=== PATIENT | female | born 1970 | race Caucasian/White ===

== ENCOUNTER 2020-12-09 09:56 | Emergency (ER) | payer SELFPAY | END 2020-12-09 13:40 | disposition home or self-care (01) | LOC: CSHERS 09:56 | DX: R19.7 Diarrhea, unspecified (principal); R10.32 Left lower quadrant pain; E11.9 Type 2 diabetes mellitus without complications; Z87.891 Personal history of nicotine dependence | CPT/HCPCS: 99283 ==

== ENCOUNTER 2021-08-06 14:17 | Emergency (ER) | payer SELFPAY ==
[2021-08-06] MEDS ORDERED: predniSONE 20 MG TAB ONE (14:51)
== END 2021-08-06 15:26 | disposition home or self-care (01) ==
LOC: CSHERS 14:17
DX: J45.909 Unspecified asthma, uncomplicated (principal); J06.9 Acute upper respiratory infection, unspecified; Z87.891 Personal history of nicotine dependence; E11.9 Type 2 diabetes mellitus without complications
CPT/HCPCS: 94640; J7512; J7620

== ENCOUNTER 2021-11-02 09:56 | Emergency (ER) | payer SELFPAY ==
[2021-11-02 10:42] LABS: Bilirubin Neg (Negative); Blood, Urine 50 (Negative); Clarity Clear (Clear); Glucose, Urine (Dipstick) >=1000 mg/dL (Negative); Ketone, Urine Negative (Negative); Leukocyte 500 (Negative); Nitrite Negative (Negative); Protein, Urine (Dipstick) 15 mg/dl (Neg-Trace); Specific Gravity, Urine 1.025 (1.002-1.036); Urobilinogen Normal mg/dL (Less than 2)
[2021-11-02 10:50] LABS: Bacteria/HPF 1+ HPF (None Seen); Mucous/LPF 2+ LPF (<2+)
== END 2021-11-02 11:45 | disposition home or self-care (01) ==
LOC: CSHERS 09:56
DX: N30.00 Acute cystitis without hematuria (principal); E11.9 Type 2 diabetes mellitus without complications; Z87.891 Personal history of nicotine dependence
CPT/HCPCS: 36416; 81003; 81015; 99284

== ENCOUNTER 2022-09-16 12:16 | Emergency (ER) | payer SELFPAY | END 2022-09-16 12:57 | disposition home or self-care (01) | LOC: CSHERS 12:16 | DX: K52.9 Noninfective gastroenteritis and colitis, unspecified (principal); E11.9 Type 2 diabetes mellitus without complications; Z87.891 Personal history of nicotine dependence | CPT/HCPCS: 99283 ==

== ENCOUNTER 2022-11-01 13:19 | Emergency (ER) | payer SELFPAY ==
[2022-11-01 17:05] LABS: SARS-CoV-2 NAA Rapid Test Not Detected (NotDetected)
== END 2022-11-01 17:25 | disposition home or self-care (01) ==
LOC: CSHERS 13:19
DX: J06.9 Acute upper respiratory infection, unspecified (principal); E11.9 Type 2 diabetes mellitus without complications; Z87.891 Personal history of nicotine dependence; Z20.822 Contact with and (suspected) exposure to COVID-19
CPT/HCPCS: 87081; 87430; 99283

== ENCOUNTER 2023-04-26 13:17 | Emergency (ER) | payer BC, SELFPAY ==
[2023-04-26] MEDS ORDERED: Ibuprofen 200 MG TAB ONE (19:31)
[2023-04-26 20:02] LABS: SARS-CoV-2 NAA Rapid Test Not Detected (NotDetected)
== END 2023-04-26 20:48 | disposition home or self-care (01) ==
LOC: CSHERS 13:17
DX: J02.9 Acute pharyngitis, unspecified (principal); R07.9 Chest pain, unspecified; E11.9 Type 2 diabetes mellitus without complications; Z87.891 Personal history of nicotine dependence; Z20.822 Contact with and (suspected) exposure to COVID-19
CPT/HCPCS: 71045; 87081; 87430; U0002

== ENCOUNTER 2023-05-24 10:16 | Emergency (ER) | payer OTHER ==
[2023-05-24 11:12] LABS: #Basophils 0.1 10x3/uL (0.0-0.2); #Eosinphils 0.1 10x3/uL (0.0-0.5); #Monocytes 0.3 10x3/uL (0.0-1.1); #Neutrophils 3.5 10x3/uL (1.5-8.4); %Basophils 0.8 % (0.0-2.0); %Eosinophils 2.3 % (0.0-6.0); %Lymphocytes 35.1 % (18.0-47.0); %Monocytes 4.5 % (0.0-10.0); Hematocrit 38.2 % (34.9-44.5); Hemoglobin 12.9 g/dL (12.0-15.5); Mean Corpuscular HGB CONC 33.8 g/dL (32.0-36.0); Mean Corpuscular Hemoglobin 29.4 pg (27.0-33.0); Mean Platelet Volume 9.6 fl (7.4-10.4); Platelet Count 321 10x3/uL (150-450); RBC Distribution Width 12.1 % (11.5-14.5); Red Blood Cell (RBC) Count 4.39 10x6/uL (3.90-5.03); White Blood Cell (WBC) Count 6.1 10x3/uL (3.5-10.5)
[2023-05-24 11:29] LABS: ALT (SGPT) 24 U/L (8-55); AST (SGOT) 16 U/L (5-34); Albumin 4.2 g/dL (3.5-5.0); Alkaline Phosphatase 69 U/L (40-110); Anion Gap 13 mmol/L (10-20); BUN (Urea Nitrogen) 13 mg/dL (7.0-18.7); Bilirubin, Total 0.5 mg/dL (0.2-1.2); Calc. Creatinine Clearance 0 mL/min (70-130); Calcium 9.2 mg/dL (7.8-10.44); Carbon Dioxide 26 mmol/L (22-29); Chloride 103 mmol/L (98-107); Estimated GFR 100; Globulin 2.8 g/dL (2.4-3.5); Glucose 258 mg/dL (70-105); Lipase 22 U/L (8-78); Potassium 3.8 mmol/L (3.5-5.1); Sodium 138 mmol/L (136-145)
[2023-05-24 11:31] LABS: Troponin I Less than 0.010 ng/mL (< 0.028)
[2023-05-24] MEDS ORDERED: Ondansetron PF 4 MG/2 ML Vial ONE (11:48)
[2023-05-24] MEDS ORDERED: Famotidine/PF 20 mg/2ml Vial ONE (11:48)
[2023-05-24] MEDS ORDERED: Dicyclomine 20 MG TAB ONE (11:50)
== END 2023-05-24 12:58 | disposition home or self-care (01) ==
LOC: CSHERS 10:16
DX: R10.13 Epigastric pain (principal); B35.1 Tinea unguium; E11.9 Type 2 diabetes mellitus without complications; Z79.84 Long term (current) use of oral hypoglycemic drugs
CPT/HCPCS: 80053; 83690; 84484; 85025; 93005; 94760; 96374; 96375; J2405; S0028

== ENCOUNTER 2023-08-17 08:07 | Emergency (ER) | payer BC, OTHER ==
[2023-08-17] MEDS ORDERED: Bacitracin 1 PK ONE (08:38)
== END 2023-08-17 08:38 | disposition home or self-care (01) ==
LOC: CSHERS 08:07
DX: L03.012 Cellulitis of left finger (principal); E11.9 Type 2 diabetes mellitus without complications; Z87.891 Personal history of nicotine dependence
CPT/HCPCS: 99283

== ENCOUNTER 2023-10-26 08:18 | Emergency (ER) | payer OTHER ==
[2023-10-26] MEDS ORDERED: traMADol HCl 50 MG TAB ONE (09:10)
== END 2023-10-26 10:41 | disposition home or self-care (01) ==
LOC: CSHERS 08:18
DX: S70.02XA Contusion of left hip, initial encounter (principal); E11.9 Type 2 diabetes mellitus without complications; Z87.891 Personal history of nicotine dependence; W18.30XA Fall on same level, unspecified, initial encounter

== ENCOUNTER 2023-11-03 10:17 | Emergency (ER) | payer OTHER, SELFPAY ==
[2023-11-03] MEDS ORDERED: Acetaminophen 500 MG TAB ONE (10:52)
[2023-11-03] MEDS ORDERED: Ibuprofen 200 MG TAB ONE (10:52)
[2023-11-03 10:53] LABS: #Eosinphils 0.1 10x3/uL (0.0-0.5); #Monocytes 0.2 10x3/uL (0.0-1.1); #Neutrophils 3.6 10x3/uL (1.5-8.4); %Basophils 0.7 % (0.0-2.0); %Eosinophils 1.7 % (0.0-6.0); %Lymphocytes 31.7 % (18.0-47.0); %Monocytes 3.8 % (0.0-10.0); %Neutrophils 61.8 % (40.0-75.0); Hematocrit 36.5 % (34.9-44.5); Hemoglobin 12.5 g/dL (12.0-15.5); Mean Corpuscular HGB CONC 34.2 g/dL (32.0-36.0); Mean Corpuscular Hemoglobin 30.3 pg (27.0-33.0); Mean Corpuscular Volume 88.4 fl (81.6-98.3); Mean Platelet Volume 10.1 fl (7.4-10.4); Platelet Count 321 10x3/uL (150-450); Red Blood Cell (RBC) Count 4.13 10x6/uL (3.90-5.03); White Blood Cell (WBC) Count 5.8 10x3/uL (3.5-10.5)
[2023-11-03 11:02] LABS: ALT (SGPT) 13 U/L (8-55); AST (SGOT) 9 U/L (5-34); Albumin 4.2 g/dL (3.5-5.0); Alkaline Phosphatase 66 U/L (40-110); Anion Gap 14 mmol/L (10-20); BUN (Urea Nitrogen) 26 mg/dL (9.8-20.1); Bilirubin, Total 0.4 mg/dL (0.2-1.2); Calc. Creatinine Clearance 0 mL/min (70-130); Calcium 9.1 mg/dL (7.8-10.44); Carbon Dioxide 24 mmol/L (22-29); Chloride 102 mmol/L (98-107); Estimated GFR 66; Globulin 2.8 g/dL (2.4-3.5); Potassium 4.2 mmol/L (3.5-5.1); Sodium 136 mmol/L (136-145)
[2023-11-03 11:06] LABS: Troponin I Less than 0.010 ng/mL (< 0.028)
[2023-11-03 11:18] LABS: Glucose 465 mg/dL (70-105)
== END 2023-11-03 12:11 | disposition home or self-care (01) ==
LOC: CSHERS 10:17
DX: R07.89 Other chest pain (principal); E11.9 Type 2 diabetes mellitus without complications; Z87.891 Personal history of nicotine dependence
CPT/HCPCS: 71045; 80053; 84484; 85025; 93005

== ENCOUNTER 2024-01-26 11:13 | Emergency (ER) | payer OTHER ==
[2024-01-26] MEDS ORDERED: Ibuprofen 200 MG TAB ONE (11:38)
[2024-01-26] MEDS ORDERED: Acetaminophen 500 MG TAB ONE (11:38)
== END 2024-01-26 11:47 | disposition home or self-care (01) ==
LOC: CSHERS 11:13
DX: M79.661 Pain in right lower leg (principal); E11.9 Type 2 diabetes mellitus without complications; Z87.891 Personal history of nicotine dependence
CPT/HCPCS: 36416; 99283

== ENCOUNTER 2024-02-29 21:04 | Emergency (ER) | payer OTHER ==
[2024-02-29] MEDS ORDERED: Ketorolac Tromethamine 30 MG (1 mL) VIAL ONE (21:47)
== END 2024-02-29 21:55 | disposition home or self-care (01) ==
LOC: CSHERS 21:04
DX: S83.001A Unspecified subluxation of right patella, initial encounter (principal); E11.9 Type 2 diabetes mellitus without complications; X50.1XXA Overexertion from prolonged static or awkward postures, initial encounter
CPT/HCPCS: 96372; J1885

== ENCOUNTER 2024-03-13 11:13 | Emergency (ER) | payer OTHER ==
[2024-03-13] MEDS ORDERED: Ketorolac Tromethamine 30 MG (1 mL) VIAL ONE (11:51)
== END 2024-03-13 12:40 | disposition home or self-care (01) ==
LOC: CSHERS 11:13
DX: M25.561 Pain in right knee (principal); E11.9 Type 2 diabetes mellitus without complications
CPT/HCPCS: 96372; J1885

== ENCOUNTER 2024-03-27 11:18 | Emergency (ER) | payer OTHER ==
[2024-03-27] MEDS ORDERED: Ketorolac Tromethamine 30 MG (1 mL) VIAL ONE (12:21)
== END 2024-03-27 12:32 | disposition home or self-care (01) ==
LOC: CSHERS 11:18
DX: G89.29 Other chronic pain (principal); M25.561 Pain in right knee; E11.9 Type 2 diabetes mellitus without complications
CPT/HCPCS: 96372; J1885

== ENCOUNTER 2024-06-28 11:14 | Emergency (ER) | payer OTHER ==
[2024-06-28] MEDS ORDERED: Ibuprofen 200 MG TAB ONE (12:43)
== END 2024-06-28 13:24 | disposition home or self-care (01) ==
LOC: CSHERS 11:14
DX: M25.561 Pain in right knee (principal); G89.29 Other chronic pain; E11.9 Type 2 diabetes mellitus without complications
CPT/HCPCS: 99283

== ENCOUNTER 2024-07-11 10:17 | Emergency (ER) | payer OTHER | END 2024-07-11 11:50 | disposition home or self-care (01) | LOC: CSHERS 10:17 | DX: S83.411A Sprain of medial collateral ligament of right knee, initial encounter (principal); E11.9 Type 2 diabetes mellitus without complications; X50.0XXA Overexertion from strenuous movement or load, initial encounter | CPT/HCPCS: 99283 ==

== ENCOUNTER 2024-08-15 10:16 | Emergency (ER) | payer OTHER | END 2024-08-15 12:58 | disposition home or self-care (01) | LOC: CSHERS 10:16 | DX: J06.9 Acute upper respiratory infection, unspecified (principal); E11.9 Type 2 diabetes mellitus without complications | CPT/HCPCS: 71045; 99283 ==

== ENCOUNTER 2025-05-01 09:57 | Emergency (ER) | payer OTHER, SELFPAY ==
[2025-05-01] MEDS ORDERED: Ibuprofen 200 MG TAB ONE (10:56)
== END 2025-05-01 10:59 | disposition home or self-care (01) ==
LOC: CSHERS 09:57
DX: M77.9 Enthesopathy, unspecified (principal); E11.9 Type 2 diabetes mellitus without complications
CPT/HCPCS: 99283

== ENCOUNTER 2025-05-09 11:18 | Emergency (ER) | payer SELFPAY | END 2025-05-09 13:29 | disposition home or self-care (01) | LOC: CSHERS 11:18 | DX: S80.01XA Contusion of right knee, initial encounter (principal); E11.9 Type 2 diabetes mellitus without complications; W22.8XXA Striking against or struck by other objects, initial encounter | CPT/HCPCS: 99283 ==

== ENCOUNTER 2025-05-22 11:19 | Emergency (ER) | payer OTHER ==
[2025-05-22] MEDS ORDERED: Cyclobenzaprine 10 MG TAB ONE (11:58)
[2025-05-22] MEDS ORDERED: predniSONE 20 MG TAB ONE (11:58)
== END 2025-05-22 12:10 | disposition home or self-care (01) ==
LOC: CSHERS 11:19
DX: S83.241A Other tear of medial meniscus, current injury, right knee, initial encounter (principal); E11.9 Type 2 diabetes mellitus without complications; W22.8XXA Striking against or struck by other objects, initial encounter
CPT/HCPCS: 99283; J7512

== ENCOUNTER 2025-06-12 13:04 | Emergency (ER) | payer OTHER | END 2025-06-12 14:47 | disposition home or self-care (01) | LOC: CSHERS 13:04 | DX: M25.561 Pain in right knee (principal); G89.29 Other chronic pain; E11.9 Type 2 diabetes mellitus without complications | CPT/HCPCS: 99283 ==

== ENCOUNTER 2025-07-04 14:19 | Emergency (ER) | payer OTHER | END 2025-07-04 15:19 | disposition home or self-care (01) | LOC: CSHERS 14:19 | DX: S90.31XA Contusion of right foot, initial encounter (principal); E11.9 Type 2 diabetes mellitus without complications; W22.8XXA Striking against or struck by other objects, initial encounter | CPT/HCPCS: 99283 ==